=== PATIENT | male | born 1945 | race Two or more races ===

== ENCOUNTER 2023-10-28 15:56 | Inpatient (IN) | payer OTHER ==
[~2023-10-28] VITALS: Ht 167.6 cm; Wt 68.2 kg
[2023-10-28 17:01] LABS: Basophils # (auto) 0 10 ^3/uL (0-0.2); Basophils % (auto) 0.5 % (0.0-2.0); Eosinophils # (auto) 0.1 10 ^3/uL (0-0.8); Hemoglobin 9.9 g/dL (13.5-17.5); Lymphocytes # (auto) 1.1 10 ^3/uL (0.4-5.4); Lymphocytes % (auto) 15.8 % (10.0-50.0); Mean Corpuscular Hemoglobin 30.4 pg (28.0-32.0); Mean Corpuscular Hgb Conc. 33.2 g/dL (32.0-36.0); Mean Corpuscular Volume 91.7 fL (80.0-100.0); Monocytes % (auto) 14.1 % (0.0-12.0); Neutrophils # (auto) 4.8 10 ^3/uL (1.6-8.6); Neutrophils % (auto) 68.6 % (37.0-80.0); Nucleated Red Blood Cells % 0.3 %; Red Blood Cells 3.27 10^6/uL (4.5-5.90); Red Cell Distribution Width 13.2 % (11.8-14.3)
[2023-10-28 17:16] LABS: INR 1.14 (0.9-1.15)
[2023-10-28 17:33] LABS: Alanine Aminotransferase 18 U/L (7-40); Albumin 3.6 g/dL (3.2-4.8); Alkaline Phosphatase 67 U/L (46-116); Anion Gap 6 (5-15); Aspartate Aminotransferase 22 U/L (13-40); BUN/Creatinine Ratio 18.8 (10.0-20.0); Blood Urea Nitrogen 13 mg/dL (9-23); Calcium 8.7 mg/dL (8.5-10.1); Carbon Dioxide 30 mmol/L (20-30); Chloride 97 mmol/L (98-107); Glucose 138 mg/dL (74-106); Potassium 3.7 mmol/L (3.5-5.1); Sodium 133 mmol/L (136-145)
[2023-10-28 17:34] LABS: Total Protein 5.3 g/dL (5.7-8.2)
[2023-10-28] MEDS ORDERED: HYDROcodone-ACET 5/325MG TAB PO PRN (22:00)
[2023-10-28] MEDS ORDERED: ONDANSETRON HCL 4 MG/2 ML VIAL IV PRN (22:00)
[2023-10-28] MEDS ORDERED: hydrALAZINE HCL 20 MG/ML VL IV PRN (22:00)
[2023-10-28] MEDS ORDERED: MORPHINE SULFATE INJ 2 MG/ml SYRG IV PRN (22:00)
[2023-10-29 00:40] LABS: Urine Bacteria None Seen /hpf (None Seen)
[2023-10-29] MEDS: TAMSULOSIN HYDROCHLORIDE 0.4 MG CAP PO SCH (00:53)
[2023-10-29] MEDS: FUROSEMIDE 40 MG/4 ML VIAL IV ONE (00:54)
[2023-10-29] MEDS: FLEET ENEMA(ADULT) 135 ML PR ONE (00:54)
[2023-10-29 01:10] VITALS: PULSE 90; RESP 18; O2SAT 97
[2023-10-29 01:36] LABS: Urine Mucus FEW (None Seen); Urine WBC 2 /hpf (0 - 3)
[2023-10-29 01:39] LABS: Urine Blood 1+ /uL (Negative); Urine Clarity CLEAR (Clear); Urine Color Yellow (Yellow); Urine Protein, UAD Normal (Negative); Urine Specific Gravity 1.013 (1.001-1.035); Urine Urobilinogen Normal (Negative)
[2023-10-29] MEDS: GOLYTELY 4L KIT PO ONE (02:54)
[2023-10-29 05:32] LABS: Basophils # (auto) 0 10 ^3/uL (0-0.2); Basophils % (auto) 0.4 % (0.0-2.0); Eosinophils # (auto) 0.1 10 ^3/uL (0-0.8); Eosinophils % (auto) 0.6 % (0.0-7.0); Hemoglobin 11.2 g/dL (13.5-17.5); Lymphocytes % (auto) 9.2 % (10.0-50.0); Mean Corpuscular Hemoglobin 30.9 pg (28.0-32.0); Mean Corpuscular Hgb Conc. 32.9 g/dL (32.0-36.0); Monocytes # (auto) 1.5 10 ^3/uL (0-1.3); Monocytes % (auto) 13.9 % (0.0-12.0); Neutrophils # (auto) 8.1 10 ^3/uL (1.6-8.6); Neutrophils % (auto) 75.9 % (37.0-80.0); Nucleated Red Blood Cells % 0.5 %; Red Blood Cells 3.62 10^6/uL (4.5-5.90); Red Cell Distribution Width 13.6 % (11.8-14.3); White Blood Cell 10.7 10^3/uL (4.4-10.8)
[2023-10-29 05:46] LABS: Chloride 95 mmol/L (98-107); Potassium 3.5 mmol/L (3.5-5.1); Sodium 130 mmol/L (136-145)
[2023-10-29 05:47] LABS: Anion Gap 10 (5-15); Carbon Dioxide 25 mmol/L (20-30)
[2023-10-29 05:48] LABS: Calcium 8.9 mg/dL (8.7-10.4)
[2023-10-29 05:52] LABS: BUN/Creatinine Ratio 16.4 (10.0-20.0); Blood Urea Nitrogen 12 mg/dL (9-23); Glucose 147 mg/dL (74-106)
[2023-10-29 08:00] VITALS: PULSE 94; RESP 23; O2SAT 91
[2023-10-29] MEDS: PANTOPRAZOLE 40 MG/10 ML VIAL INJ IV SCH (11:06)
[2023-10-29] MEDS: ENOXAPARIN SOD 40 MG/0.4 ML SYRINGE SC SCH (11:07)
[2023-10-29] MEDS: CARVEDILOL 3.125 MG TAB PO SCH (11:07)
[2023-10-29] MEDS ORDERED: MORPHINE SULFATE INJ 2 MG/ml SYRG IV PRN (12:30)
[2023-10-29] MEDS ORDERED: OXYCODONE W/ ACETAMINOPHEN 5/325MG TABLET PO PRN (12:30)
[2023-10-29] MEDS: SODIUM CHLORIDE 0.9% 1,000 ML IV SCH (15:23)
[2023-10-29 16:29] VITALS: BP 103/61; PULSE 79; RESP 19; TEMP 98.5; O2SAT 92
[2023-10-29 16:30] VITALS: BP 103/61; PULSE 79; RESP 19; TEMP 98.5; O2SAT 92
[2023-10-29] MEDS ORDERED: ACETAMINOPHEN 325 MG TAB PO PRN (16:30)
[2023-10-29 20:00] VITALS: PULSE 73; PULSE 82; RESP 16; O2SAT 95
[2023-10-29 21:00] VITALS: BP 107/58; PULSE 73; RESP 16; TEMP 98.1; O2SAT 95
[2023-10-29] MEDS: DOCUSATE SOD 100 MG CAP PO SCH (21:49)
[2023-10-29] MEDS: oxyCODONE ER 10 MG TAB PO SCH (21:49)
[2023-10-29] MEDS ORDERED: MORPHINE SULFATE 4 MG/ML SYR/VIAL IV PRN (22:15)
[2023-10-30 05:00] VITALS: BP 137/60; PULSE 78; RESP 17; TEMP 98.1; O2SAT 90
[2023-10-30] MEDS: ACETAMINOPHEN 325 MG TAB PO PRN (05:12)
[2023-10-30] MEDS: KETOROLAC TROMETH 30 MG/ML 1ML VIAL IV PRN (05:12)
[2023-10-30 05:54] LABS: Anion Gap 5 (5-15); Carbon Dioxide 29 mmol/L (20-30); Chloride 101 mmol/L (98-107)
[2023-10-30 05:55] LABS: Calcium 7.6 mg/dL (8.7-10.4)
[2023-10-30 06:00] LABS: Blood Urea Nitrogen 13 mg/dL (9-23); Glucose 126 mg/dL (74-106)
[2023-10-30 06:27] LABS: Sodium 135 mmol/L (136-145)
[2023-10-30 06:59] LABS: Basophils # (auto) 0 10 ^3/uL (0-0.2); Basophils % (auto) 0.3 % (0.0-2.0); Eosinophils # (auto) 0.1 10 ^3/uL (0-0.8); Eosinophils % (auto) 1.6 % (0.0-7.0); Hematocrit 26.6 % (41.0-53.0); Hemoglobin 8.9 g/dL (13.5-17.5); Lymphocytes # (auto) 0.7 10 ^3/uL (0.4-5.4); Lymphocytes % (auto) 8.9 % (10.0-50.0); Mean Corpuscular Hemoglobin 30.6 pg (28.0-32.0); Mean Corpuscular Hgb Conc. 33.5 g/dL (32.0-36.0); Mean Corpuscular Volume 91.3 fL (80.0-100.0); Monocytes # (auto) 0.9 10 ^3/uL (0-1.3); Monocytes % (auto) 12.1 % (0.0-12.0); Neutrophils # (auto) 5.7 10 ^3/uL (1.6-8.6); Neutrophils % (auto) 77.1 % (37.0-80.0); Nucleated Red Blood Cells % 0.1 %; Red Blood Cells 2.91 10^6/uL (4.5-5.90); Red Cell Distribution Width 13.6 % (11.8-14.3); White Blood Cell 7.4 10^3/uL (4.4-10.8)
[2023-10-30 08:00] VITALS: PULSE 84
[2023-10-30] MEDS: FINASTERIDE 5 MG TAB PO SCH (08:47)
[2023-10-30 08:49] VITALS: BP 137/65; PULSE 74; RESP 18; TEMP 98.1; O2SAT 96
[2023-10-30] MEDS: POTASSIUM CHL 20 Meq TABLET PO ONE (11:42)
[2023-10-30] MEDS: POTASSIUM CHL 20MEQ/100ML 100 ML IV SCH (11:43)
[2023-10-30 12:55] VITALS: BP 111/54; PULSE 72; RESP 18; TEMP 98.7; O2SAT 95
[2023-10-30 17:00] VITALS: BP 146/78; PULSE 75; RESP 18; TEMP 99; O2SAT 97
[2023-10-30 20:00] VITALS: O2SAT 95
== END 2023-10-30 20:17 | DRG 389 ==
LOC: ER 15:56 → EDBD 15:56 → TELE 23:00 → TELE-WESTW 10-29 16:21
PROVIDERS: ADMIT Nurse Practitioner Family; ATTEND Nurse Practitioner Family
DX: K56.699 Other intestinal obstruction unspecified as to partial versus complete obstruction (principal); E87.1 Hypo-osmolality and hyponatremia; J90 Pleural effusion, not elsewhere classified; K59.00 Constipation, unspecified; N40.1 Benign prostatic hyperplasia with lower urinary tract symptoms; D64.9 Anemia, unspecified; G89.29 Other chronic pain; E78.5 Hyperlipidemia, unspecified; E11.9 Type 2 diabetes mellitus without complications; R33.8 Other retention of urine; I10 Essential (primary) hypertension; Z98.1 Arthrodesis status; Z79.84 Long term (current) use of oral hypoglycemic drugs; I25.2 Old myocardial infarction; T40.605A Adverse effect of unspecified narcotics, initial encounter; N30.90 Cystitis, unspecified without hematuria
CPT/HCPCS: 36415; 74018; 74176; 80048; 80053; 81001; 84439; 84443; 85025; 85610; 87081; 96374; 96375; 97163; C9113; G0378; J1885; J3480